=== PATIENT | male | born 1990 | race Two or more races ===

== ENCOUNTER 2019-05-20 01:54 | Emergency (ER) | payer SELFPAY ==
[~2019-05-20] VITALS: Ht 172.7 cm; Wt 85.3 kg
[2019-05-20 02:11] VITALS: BP 150/96
--- NOTE | 2019-05-20 02:12 | NUR ---
BIB FAMILY W/ C/O EPIGASTRIC PAIN FOR THE PAST FEW DAYS. - N/V, - DIZZINESS. PT APPREARS ANXIOUS. PLACED ON A MONITOR . VSS. WILL CONT TO MONITOR,
--- NOTE | 2019-05-20 02:26 | NUR ---
SYSTEMS SOFTWARE MANAGER AT THE BED SIDE BUT PT REFUSED BLOOD DRAW.
--- NOTE | 2019-05-20 02:27 | NUR ---
ECG TECH AT THE BED SIDE
--- NOTE | 2019-05-20 02:52 | NUR ---
Note christiano in ED - 05/20/19 at 0357 by JEMAL PT HAS LEFT THE HOSPITAL AND LEFT THE FRIEND TO STAY AND FOLLOW UP W/ THE RESULT OF IMAGINGS. PER FRIEND, PT WAS AGITATED AND COULD NOT TOLERATE STAYING AT THE HOSPITAL ANY LONGER.
--- NOTE | 2019-05-20 02:58 | NUR ---
BACK FROM CT
--- NOTE | 2019-05-20 03:20 | NUR ---
PT HAS LEFT THE HOSPITAL AND LEFT THE FRIEND TO STAY AND FOLLOW UP W/ THE RESULT OF IMAGINGS. PER FRIEND, PT WAS AGITATED AND COULD NOT TOLERATE STAYING AT THE HOSPITAL ANY LONGER.
--- NOTE | 2019-05-20 03:41 | NUR ---
CALLED [facility] TO F/U W/ CXR AND ABD CT READING
--- NOTE | 2019-05-20 03:45 | NUR ---
[phone] RESULTS
--- NOTE | 2019-05-20 03:54 | NUR ---
THE RESULT OF THE CXR AND CT WERE DISCUSSED W/ THE FRIEND AND HE WAS ENCOURAGED TO SCHEDULE AN APPOINTMENT WITH HIS PCP AND FOLLOW UP. FRINED VERBALIZED UNDERSTANDING. MADE AWARE.
== END 2019-05-20 04:00 | disposition left against medical advice (07) ==
LOC: ER 01:57
DX: R10.9 Unspecified abdominal pain (principal); R07.89 Other chest pain
CPT/HCPCS: 71045-TC

== ENCOUNTER 2019-12-30 01:48 | Emergency (ER) | payer OTHER ==
[~2019-12-30] VITALS: Ht 170.2 cm; Wt 79.4 kg
[2019-12-30 01:48] VITALS: BP 146/96
[2019-12-30] MEDS ORDERED: BACI/NEOM/POLY B OINT PKT 1 UDPKT PACKET TP ONE (02:30)
[2019-12-30] MEDS ORDERED: HYDROCODONE/APAP 5/325MG 1 EACH TABLET ONE (02:41)
[2019-12-30] MEDS ORDERED: ONDANSETRON 4 MG TAB.RAPDIS ONE (02:42)
--- NOTE | 2019-12-30 02:44 | NUR ---
RADIOLOGY AT BEDSIDE FOR XRAY
[2019-12-30] MEDS ORDERED: ONDANSETRON 4 MG TAB.RAPDIS SL ONE (03:00)
[2019-12-30] MEDS ORDERED: HYDROCODONE/APAP 5/325MG 1 EACH TABLET PO ONE (03:00)
== END 2019-12-30 03:18 | disposition home or self-care (01) ==
LOC: ER 01:48
DX: S00.81XA Abrasion of other part of head, initial encounter (principal); M79.645 Pain in left finger(s); V49.49XA Driver injured in collision with other motor vehicles in traffic accident, initial encounter; Y93.89 Activity, other specified; Y92.413 State road as the place of occurrence of the external cause; Y99.8 Other external cause status
CPT/HCPCS: 29125; 73130; 99283; Q0162